=== PATIENT | female | born 1950 | race Caucasian/White ===

== ENCOUNTER 2017-06-01 12:25 | Day surgery (SDC) | payer MEDICARE, BC ==
[~2017-06-01] VITALS: Ht 157.5 cm; Wt 72.6 kg
[~2017-06-01 12:25] MED LIST: ALLER-FLO15.8 ML; AMLO5 PO; ASPI81CH PO; Advair Hfa 230-12 GM; CALCIUM 600 +1 EA11 PO; CARV25 PO; CHLO25B PO; COMBIVENT RESPIM4 GM INH; Multiple Vitam1 EAC1 PO; POTA10T PO
[2017-06-02 04:43] LABS: BASOPHILS ABSOLUTE AUTO 0.05 K/mm3 (0.00-0.23); BASOPHILS PERCENT AUTO 0 % (0-2); EOSINOPHILS ABSOLUTE AUTO 0.05 K/mm3 (0.00-0.68); EOSINOPHILS PERCENT AUTO 0 % (0-6); Hematocrit 37.2 % (33.0-51.0); IMMATURE GRAN ABSOLUTE AUTO 0.05 K/mm3 (0.00-0.10); IMMATURE GRAN PERCENT AUTO 0 % (0-1); LYMPHOCYTES ABSOLUTE AUTO 1.95 K/mm3 (0.84-5.20); LYMPHOCYTES PERCENT AUTO 14 % (21-46); MONOCYTES PERCENT AUTO 8 % (4-13); Mean Corpuscular HGB 29.2 pg (26.0-34.0); Mean Corpuscular HGB Conc 32.3 g/dL (31.5-36.5); Mean Platelet Volume 10.9 fL (9.1-12.4); NEUTROPHILS ABSOLUTE AUTO 11.13 K/mm3 (1.96-9.15); NEUTROPHILS PERCENT AUTO 78 % (41-73); Platelet Count 216 K/mm3 (150-400); RDW Coefficient Variation 13.5 % (11.7-14.2); RDW Standard Deviation 44.8 fL (35.1-46.3); Red Blood Cell Count 4.11 M/mm3 (3.80-5.20); White Blood Cell Count 14.33 K/mm3 (4.00-11.30)
[2017-06-02 04:46] LABS: Mean Corpuscular Volume 91 fL (80-100)
[2017-06-02 05:04] LABS: Anion Gap 6 mmol/L (6-16); Blood Urea Nitrogen 18 mg/dL (8-24); Bun/Creatinine Ratio 23.4 (12.0-20.0); CO2, Blood 31 mmol/L (21-32); Calcium, Blood 8.9 mg/dL (8.5-10.1); Chloride, Blood 104 mmol/L (98-108); Creatinine, Blood 0.77 mg/dL (0.40-1.00); Glomerular Filtration Rate >60 (60-); Glucose, Blood 112 mg/dL (70-99); Magnesium, Blood 1.7 mg/dL (1.6-2.4); Sodium, Blood 141 mmol/L (136-145)
[2017-06-02] MEDS ORDERED: ENOX40I SC (07:52)
[2017-06-02] MEDS ORDERED: ROXICODONE5 MG PO (07:53)
[2017-06-02] MEDS ORDERED: PROM25 PO (07:53)
== END 2017-06-02 11:50 | disposition home or self-care (01) ==
LOC: SURS 12:25 → ORSCMMR 12:25 → PRE IP 12:25 → EDSTATUS 17:30 → SURS 19:25 → ORSCMMR 06-02 11:50
PROVIDERS: Orthopaedic Surgery
PROC: 0SRC0J9 Replacement of Right Knee Joint with Synthetic Substitute, Cemented, Open Approach (ICD-10-PCS; principal; 2017-06-01 17:30)
DX: M17.11 Unilateral primary osteoarthritis, right knee (principal); I10 Essential (primary) hypertension; J44.9 Chronic obstructive pulmonary disease, unspecified; I25.2 Old myocardial infarction; Z87.891 Personal history of nicotine dependence; Z79.899 Other long term (current) drug therapy; Z79.82 Long term (current) use of aspirin
CPT/HCPCS: 36415; 73560-RT; 80048; 83735; 85025; 86850; 86900; 86901; 88300; 97116; 97161; C1713; C1776; G8978; G8979; J0171; J0690; J0735; J1170; J1650; J1885; J2250; J2405; J2795; J3010; J7120

== ENCOUNTER 2019-01-29 18:19 | Inpatient (IN) | payer MEDICARE, BC ==
[~2019-01-29] VITALS: Ht 154.9 cm; Wt 74.7 kg
[~2019-01-29 18:19] MED LIST changes: +ENOX40I SC; +PROM25 PO; +ROXICODONE5 MG PO
[2019-01-29 19:52] LABS: BASOPHILS ABSOLUTE AUTO 0.04 K/mm3 (0.00-0.23); BASOPHILS PERCENT AUTO 0 % (0-2); EOSINOPHILS ABSOLUTE AUTO 0.03 K/mm3 (0.00-0.68); EOSINOPHILS PERCENT AUTO 0 % (0-6); Hematocrit 39.2 % (33.0-51.0); Hemoglobin 12.8 g/dL (11.5-16.0); IMMATURE GRAN ABSOLUTE AUTO 0.04 K/mm3 (0.00-0.10); IMMATURE GRAN PERCENT AUTO 0 % (0-1); LYMPHOCYTES ABSOLUTE AUTO 1.28 K/mm3 (0.84-5.20); LYMPHOCYTES PERCENT AUTO 10 % (21-46); MONOCYTES ABSOLUTE AUTO 1.03 K/mm3 (0.16-1.47); MONOCYTES PERCENT AUTO 8 % (4-13); Mean Corpuscular HGB 29.8 pg (26.0-34.0); Mean Corpuscular HGB Conc 32.7 g/dL (31.5-36.5); Mean Corpuscular Volume 91 fL (80-100); Mean Platelet Volume 10.9 fL (9.1-12.4); NEUTROPHILS ABSOLUTE AUTO 9.94 K/mm3 (1.96-9.15); NEUTROPHILS PERCENT AUTO 81 % (41-73); Platelet Count 272 K/mm3 (150-400); RDW Coefficient Variation 13.2 % (11.7-14.2); RDW Standard Deviation 44.3 fL (35.1-46.3); White Blood Cell Count 12.36 K/mm3 (4.00-11.30)
[2019-01-29] MEDS ORDERED: WIXELA 250-501 EACH (20:00)
[2019-01-29] MEDS ORDERED: FLUO10 PO (20:01)
[2019-01-29 20:12] LABS: Albumin, Blood 3.1 g/dL (3.4-5.0); Albumin/Globulin Ratio 0.8 (0.8-1.8); Bilirubin, Total 0.5 mg/dL (0.1-1.0); Bun/Creatinine Ratio 26.5 (12.0-20.0); Creatinine, Blood 1.02 mg/dL (0.40-1.00); Potassium, Blood 2.9 mmol/L (3.5-5.5); Total Protein, Blood 7.1 g/dL (6.4-8.2)
[2019-01-29] MEDS ORDERED: MONT10T PO (22:42)
--- NOTE | 2019-01-30 06:26 | NUR ---
SHIFT SUMMARY PAIN MANAGED WITH 25 MCG IV FENTANYL/TYLENOL PER EMAR. CIRC TO LEFT LEG REMAINS WNL. PT DENIES N/T OTHER THAN BASELINE, WIGGLES TOES, VOIDING WNL. NPO SINCE MIDNIGHT. RESP UNLABORED. WCTM . CALL LIGHT IN REACH.
[2019-01-30 10:45] LABS: Anion Gap 8 mmol/L (6-16); Blood Urea Nitrogen 21 mg/dL (8-24); Bun/Creatinine Ratio 28.2 (12.0-20.0); CO2, Blood 26 mmol/L (21-32); Calcium, Blood 9.4 mg/dL (8.5-10.1); Chloride, Blood 107 mmol/L (98-108); Creatinine, Blood 0.75 mg/dL (0.40-1.00); Glomerular Filtration Rate >60 (60-); Glucose, Blood 105 mg/dL (70-99); Sodium, Blood 141 mmol/L (136-145)
--- NOTE | 2019-01-30 12:51 | NUR ---
NOZIN NASAL RN ADVICE X3 AMPULES APPLIED TO NARES BILAT. KNEE HIGH DOMINICK HOSE WITH CALF PAS PLACED TO RLE. KNEE HIGH DOMINICK HOSE WITH CALF PAS TO BE APPLIED TO LLE IN THE OR, AFTER PATIENT ASLEEP PER DR BAKER.
--- NOTE | 2019-01-30 13:01 | NUR ---
"DAY SURGERY RN | TO OR BOTH DOCTORS AND INTERLOCKING MACHINE OPERATOR HAVE SEEN. TO OR."
--- NOTE | 2019-01-30 18:34 | NUR ---
SHIFT SUMMARY PT A&OX4, VSS, S/P L HIP PINNING, AQUACEL CDI. DENIES PAIN AT THIS TIME. DENIES N&V, MYKE PO. VOIDING WELL. AMBULATING W/SBA/FWW/GB; UP TO CHAIR FOR DINNER. FAMILY IN ROOM. WILL REPORT TO ONCCHANDNI ONEILL RN.
[2019-01-31 04:48] LABS: BASOPHILS ABSOLUTE AUTO 0.02 K/mm3 (0.00-0.23); BASOPHILS PERCENT AUTO 0 % (0-2); EOSINOPHILS PERCENT AUTO 0 % (0-6); Hematocrit 35.7 % (33.0-51.0); Hemoglobin 11.5 g/dL (11.5-16.0); IMMATURE GRAN ABSOLUTE AUTO 0.05 K/mm3 (0.00-0.10); IMMATURE GRAN PERCENT AUTO 0 % (0-1); LYMPHOCYTES ABSOLUTE AUTO 0.97 K/mm3 (0.84-5.20); LYMPHOCYTES PERCENT AUTO 8 % (21-46); MONOCYTES ABSOLUTE AUTO 0.74 K/mm3 (0.16-1.47); MONOCYTES PERCENT AUTO 6 % (4-13); Mean Corpuscular HGB 29.9 pg (26.0-34.0); Mean Corpuscular HGB Conc 32.2 g/dL (31.5-36.5); Mean Corpuscular Volume 93 fL (80-100); Mean Platelet Volume 10.9 fL (9.1-12.4); NEUTROPHILS ABSOLUTE AUTO 9.81 K/mm3 (1.96-9.15); NEUTROPHILS PERCENT AUTO 85 % (41-73); Platelet Count 261 K/mm3 (150-400); RDW Coefficient Variation 13.2 % (11.7-14.2); RDW Standard Deviation 45.6 fL (35.1-46.3); Red Blood Cell Count 3.84 M/mm3 (3.80-5.20); White Blood Cell Count 11.59 K/mm3 (4.00-11.30)
--- NOTE | 2019-01-31 04:54 | NUR ---
UP AND DRESSED IN OWN CLOTHES.
[2019-01-31 05:03] LABS: Anion Gap 7 mmol/L (6-16); Blood Urea Nitrogen 25 mg/dL (8-24); Bun/Creatinine Ratio 34.7 (12.0-20.0); CO2, Blood 28 mmol/L (21-32); Calcium, Blood 9.2 mg/dL (8.5-10.1); Chloride, Blood 108 mmol/L (98-108); Creatinine, Blood 0.72 mg/dL (0.40-1.00); Glomerular Filtration Rate >60 (60-); Glucose, Blood 132 mg/dL (70-99); Potassium, Blood 3.7 mmol/L (3.5-5.5); Sodium, Blood 143 mmol/L (136-145)
--- NOTE | 2019-01-31 05:29 | NUR ---
SHIFT SUMMARY PT POD#1 LEFT HIP SURGERY. AAOX4. DISCOMFORT AT TOLERABLE LEVEL T/O NIGHT. NO NAUSEA/EMESIS. MEPILEX TO LEFT HIP C/D/I. PT UP TO RESTROOM, SBA WITH FWW, TOLERATES WELL. POTASSIUM DRAW THIS AM WNL, AWAITING H+H RESULTS. PT RESTED WELL T/O NIGHT. NADN. PT RESTING AT THIS TIME WITH CALL LIGHT WITHIN REACH.
[2019-01-31] MEDS ORDERED: TRAM50 PO (09:17)
--- NOTE | 2019-01-31 11:48 | NUR ---
DISCHARGE PT DISCHARGED HOME FROM UNIT AT APROX 1149. PT GIVEN WRITTEN AND VERBAL DISCHARGE INSTRUCTIONS AND VERBALIZED UNDERSTANDING OF THESE INSTRUCTIONS. IV REMOVED, PT TOLERATED WELL. WHEELCHAIR TO CAR.
--- NOTE | 2019-02-01 10:47 | NUR ---
02/01/19 1047 Destiny Nazario VERIFICATIONS: EDIT CHART.
== END 2019-01-31 11:51 | disposition home or self-care (01) | DRG 482 ==
LOC: ER 18:19 → SURS 19:34
PROVIDERS: Hospitalist; Orthopaedic Surgery; Physician Assistant; ADMIT Family Medicine
PROC: 0QH734Z Insertion of Internal Fixation Device into Left Upper Femur, Percutaneous Approach (ICD-10-PCS; principal; 2019-01-30 12:30)
DX: S72.009A Fracture of unspecified part of neck of unspecified femur, initial encounter for closed fracture (principal); I10 Essential (primary) hypertension; Z90.13 Acquired absence of bilateral breasts and nipples; Z96.651 Presence of right artificial knee joint; F17.290 Nicotine dependence, other tobacco product, uncomplicated; E87.6 Hypokalemia; D72.829 Elevated white blood cell count, unspecified; W18.30XA Fall on same level, unspecified, initial encounter; Y93.9 Activity, unspecified; Z79.82 Long term (current) use of aspirin; K58.9 Irritable bowel syndrome, unspecified
CPT/HCPCS: 36415; 71045; 73502; 80048; 80053; 85025; 94640; 94760; 96374; 97110; 97116; 97162; 97165; 97535; 99285-25; A9270; C1713; C1769; J0690; J1100; J1170; J1885; J2250; J2405; J2704; J3010; J3480; J7040; J7120

== ENCOUNTER 2020-02-13 06:17 | Day surgery (SDC) | payer MEDICARE, BC ==
[~2020-02-13] VITALS: Ht 154.9 cm; Wt 66.2 kg
[~2020-02-13 06:17] MED LIST changes: +Aspir 8181 MG PO; +CALCIUM 600-VI1 EAC2 PO; +COMBIVENT RESPIM4 G1 INH; +FLUO10 PO; +FLUT1DIS5 INH; +MONT10T PO; +MULTIPLE VITAM1 EACH PO; +TRAM50 PO; +WIXELA 100-501 EAC1 INH; +WIXELA 250-501 EACH
[2020-02-13] MEDS ORDERED: IBUP800 PO (06:58)
== END 2020-02-13 09:31 | disposition home or self-care (01) ==
LOC: ORSCSDS 06:17
PROVIDERS: Orthopaedic Surgery
PROC: 0SPB04Z Removal of Internal Fixation Device from Left Hip Joint, Open Approach (ICD-10-PCS; principal; 2020-02-13 07:30)
DX: T84.9XXA Unspecified complication of internal orthopedic prosthetic device, implant and graft, initial encounter (principal); I10 Essential (primary) hypertension; I25.2 Old myocardial infarction; J44.9 Chronic obstructive pulmonary disease, unspecified; Z87.891 Personal history of nicotine dependence; Z79.899 Other long term (current) drug therapy; Z79.82 Long term (current) use of aspirin
CPT/HCPCS: J0171; J0690; J1100; J1885; J2250; J2405; J2704; J3010; J7120

== ENCOUNTER 2020-04-30 11:13 | Day surgery (SDC) | payer MEDICARE, BC ==
[~2020-04-30] VITALS: Ht 152.4 cm; Wt 65.0 kg
[~2020-04-30 11:13] MED LIST changes: +FLUT1DIS2; +IBUP800 PO
--- NOTE | 2020-04-30 12:03 | NUR ---
Ambulatory in Day Surgery WITH WALKER. History, Chart, Medications and Allergies reviewed before start of procedure.Lungs clear T/O UPPER, DIMINSHED IN BASE ON R to Auscultation. Patient confirms NPO status and agrees with scheduled surgery. Pre-Op teaching done. Pt verbalizes understanding.
--- NOTE | 2020-04-30 18:05 | NUR ---
SHIFT SUMMARY PT ARRIVED @ 1530 W/ STRONG SPINAL. HAS SINCE WORE OFF, AMBULATED, VOIDED, TOELRATING DIET, & PAIN MANAGED.
[2020-04-30] MEDS ORDERED: MONT10T PO (20:05)
--- NOTE | 2020-04-30 22:47 | NUR ---
ASSUMED CARE AT 1900. PT A/O X4, TOLERATING PO INTAKE, VOIDING, AND AMBULATING. RESTING IN BED WITH CALL LIGHT IN REACH.
--- NOTE | 2020-05-01 04:06 | NUR ---
SHIFT SUMMARY PT IS A/O X4. SBA WITH FWW AND GAIT BELT TO AMBULATE. PT IS AMBULATING, TOLERATING PO INTAKE, AND VOIDING. PAIN MANAGED WTIH OXY X2 AND TYLENOL & TORADOL PER SCHEDULE. POLAR PACK IN PLACE TO L KNEE. RIGOBERTO WRAP CDI OVERNIGHT. PT IS RESTING IN BED AT THIS TIME, CALL LIGHT IN REACH.
[2020-05-01 06:17] LABS: BASOPHILS ABSOLUTE AUTO 0.03 K/mm3 (0.00-0.23); BASOPHILS PERCENT AUTO 0 % (0-2); EOSINOPHILS PERCENT AUTO 0 % (0-6); Hemoglobin 11.9 g/dL (11.5-16.0); IMMATURE GRAN ABSOLUTE AUTO 0.08 K/mm3 (0.00-0.10); IMMATURE GRAN PERCENT AUTO 1 % (0-1); LYMPHOCYTES ABSOLUTE AUTO 1.27 K/mm3 (0.84-5.20); LYMPHOCYTES PERCENT AUTO 7 % (21-46); MONOCYTES ABSOLUTE AUTO 1.02 K/mm3 (0.16-1.47); MONOCYTES PERCENT AUTO 6 % (4-13); Mean Corpuscular HGB Conc 32.2 g/dL (31.5-36.5); Mean Corpuscular Volume 90 fL (80-100); Mean Platelet Volume 11.1 fL (9.1-12.4); NEUTROPHILS ABSOLUTE AUTO 15.22 K/mm3 (1.96-9.15); NEUTROPHILS PERCENT AUTO 86 % (41-73); Platelet Count 265 K/mm3 (150-400); RDW Coefficient Variation 13.2 % (11.7-14.2); RDW Standard Deviation 43.5 fL (35.1-46.3); White Blood Cell Count 17.62 K/mm3 (4.00-11.30)
[2020-05-01 06:36] LABS: Anion Gap 6 mmol/L (6-16); Blood Urea Nitrogen 21 mg/dL (8-24); Bun/Creatinine Ratio 23.8 (12.0-20.0); CO2, Blood 30 mmol/L (21-32); Calcium, Blood 9.3 mg/dL (8.5-10.1); Chloride, Blood 105 mmol/L (98-108); Creatinine, Blood 0.88 mg/dL (0.40-1.00); Glomerular Filtration Rate >60 (60-); Glucose, Blood 114 mg/dL (70-99); Magnesium, Blood 1.5 mg/dL (1.6-2.4); Potassium, Blood 3.5 mmol/L (3.5-5.5); Sodium, Blood 141 mmol/L (136-145)
--- NOTE | 2020-05-01 10:51 | NUR ---
SHIFT SUMMARY PT A&OX4, VSS, LEFT FLOOR VIA WC WITH AVIATION MAINTENANCE TECHNICIAN TO GO HOME WITH SISTER, WITH ALL PERSONAL POSSESSIONS INCLUDING DC PACKET; SCRIPTS AT HOME. DC INSTRUCTIONS PROVIDED, PT REP UNDERSTANDING THOSE INSTRUCTIONS INCLUDING HOW TO SQ LOVENOX/ASA SCHEDULE, FU WITH SURGEON, DRESSING CHANGE SCHEDULE (WHEN/HOW), PAIN MANAGEMENT. IV DC'D.
[2020-06-25] MEDS ORDERED: MONT5TCH PO (09:10)
[2020-06-26] MEDS ORDERED: ENOX40I SC (07:58)
[2020-06-26] MEDS ORDERED: Aspirin EC81 MG PO (07:58)
[2020-06-26] MEDS ORDERED: Percocet 5-3251 EACH PO (08:00)
[2020-06-26] MEDS ORDERED: SULTRIDS PO (08:01)
[2020-06-26] MEDS ORDERED: PROM25 PO (09:53)
== END 2020-05-01 10:29 | disposition home or self-care (01) ==
LOC: ORSCMMR 11:13 → ORD 14:00 → SURS 15:19 → ORSCMMR 15:19 → SURS 05-01 10:29
PROVIDERS: Orthopaedic Surgery
PROC: 0SRD0J9 Replacement of Left Knee Joint with Synthetic Substitute, Cemented, Open Approach (ICD-10-PCS; principal; 2020-04-30 14:00)
PROC: 8E0YXBZ Computer Assisted Procedure of Lower Extremity (ICD-10-PCS; principal; 2020-04-30 14:00)
DX: M17.12 Unilateral primary osteoarthritis, left knee (principal); I10 Essential (primary) hypertension; Z79.899 Other long term (current) drug therapy; Z79.82 Long term (current) use of aspirin; Z87.891 Personal history of nicotine dependence
CPT/HCPCS: 36415; 73560-LT; 80048; 83735; 85025; 88300; 94640; 94760; 97110; 97116; 97162; A9270; C1713; C1776; J0171; J0690; J0735; J1100; J1170; J1885; J2250; J2405; J2704; J2795; J3010; J3370; J3475; J7120

== ENCOUNTER 2024-04-03 21:20 | Emergency (ER) | payer MEDICARE, BC ==
[~2024-04-03] VITALS: Ht 154.9 cm; Wt 72.6 kg
[~2024-04-03 21:20] MED LIST changes: +Aspirin EC81 MG PO; +MONT5TCH PO; +Percocet 5-3251 EACH PO; +SULTRIDS PO
[2024-04-03 22:04] LABS: BASOPHILS ABSOLUTE AUTO 0.07 K/mm3 (0.00-0.23); BASOPHILS PERCENT AUTO 1 % (0-2); EOSINOPHILS ABSOLUTE AUTO 0.03 K/mm3 (0.00-0.68); EOSINOPHILS PERCENT AUTO 0 % (0-6); IMMATURE GRAN PERCENT AUTO 1 % (0-1); LYMPHOCYTES ABSOLUTE AUTO 2.23 K/mm3 (0.84-5.20); LYMPHOCYTES PERCENT AUTO 16 % (21-46); MONOCYTES ABSOLUTE AUTO 1.05 K/mm3 (0.16-1.47); MONOCYTES PERCENT AUTO 7 % (4-13); Mean Corpuscular HGB 28.4 pg (26.0-34.0); Mean Corpuscular HGB Conc 31.7 g/dL (31.5-36.5); Mean Corpuscular Volume 90 fL (80-100); Mean Platelet Volume 11.5 fL (9.1-12.4); NEUTROPHILS ABSOLUTE AUTO 10.87 K/mm3 (1.96-9.15); NEUTROPHILS PERCENT AUTO 76 % (41-73); Platelet Count 307 K/mm3 (150-400); RDW Standard Deviation 45.2 fL (35.1-46.3); Red Blood Cell Count 4.57 M/mm3 (3.80-5.20); White Blood Cell Count 14.35 K/mm3 (4.00-11.30)
[2024-04-03 22:29] LABS: Albumin, Blood 3.3 g/dL (3.4-5.0); Albumin/Globulin Ratio 0.9 (0.8-1.8); Bilirubin, Total 0.4 mg/dL (0.1-1.0); Bun/Creatinine Ratio 22.2 (12.0-20.0); Creatinine, Blood 1.17 mg/dL (0.40-1.00); Globulin, Blood 3.7 g/dL (2.2-4.0); Potassium, Blood 4.1 mmol/L (3.5-5.5)
[2024-04-03 23:30] VITALS: BP 165/91
== END 2024-04-04 00:59 | disposition home or self-care (01) ==
LOC: ER 21:20
PROVIDERS: Physician Assistant
DX: R07.89 Other chest pain (principal); I10 Essential (primary) hypertension; Z91.048 Other nonmedicinal substance allergy status; Z79.82 Long term (current) use of aspirin; Z79.899 Other long term (current) drug therapy; Z87.891 Personal history of nicotine dependence
CPT/HCPCS: 71275; 80053; 83690; 84484; 85025; 93005; 93010; 99285-25; Q9967

== ENCOUNTER 2024-06-20 02:08 | Day surgery (SDC) | payer MEDICARE, BC ==
[~2024-06-20 02:08] MED LIST changes: -MONT5TCH PO
[2024-06-20] MEDS ORDERED: Lidocaine HCl 4% Cream 5 GM ONE (14:04)
[2024-07-02] MEDS ORDERED: IBU800 MG PO (09:47)
[2024-07-02] MEDS ORDERED: MAG-OXIDE MAGN200 MG PO (09:48)
[2024-07-02] MEDS ORDERED: METO25ER PO (09:49)
== END 2024-06-20 23:00 ==
LOC: WOUND 02:08
DX: I87.312 Chronic venous hypertension (idiopathic) with ulcer of left lower extremity (principal); L97.822 Non-pressure chronic ulcer of other part of left lower leg with fat layer exposed; I87.2 Venous insufficiency (chronic) (peripheral); I73.9 Peripheral vascular disease, unspecified; I10 Essential (primary) hypertension; J45.909 Unspecified asthma, uncomplicated; Z87.891 Personal history of nicotine dependence
CPT/HCPCS: A6213; A9270; G0463

== ENCOUNTER 2024-06-27 05:31 | Day surgery (SDC) | payer MEDICARE, BC ==
[~2024-06-27 05:31] MED LIST changes: +MONT5TCH PO
[2024-06-27] MEDS ORDERED: Lidocaine HCl 4% Cream 5 GM ONE (13:07)
== END 2024-06-27 23:00 | disposition home or self-care (01) ==
LOC: WOUND 05:31
DX: I87.312 Chronic venous hypertension (idiopathic) with ulcer of left lower extremity (principal); L97.822 Non-pressure chronic ulcer of other part of left lower leg with fat layer exposed; I87.2 Venous insufficiency (chronic) (peripheral); I73.9 Peripheral vascular disease, unspecified; I10 Essential (primary) hypertension
CPT/HCPCS: A6196; A6213; A9270

== ENCOUNTER 2024-07-03 03:15 | Day surgery (SDC) | payer MEDICARE, BC ==
[~2024-07-03 03:15] MED LIST changes: +IBU800 MG PO; +MAG-OXIDE MAGN200 MG PO; +METO25ER PO; -MONT5TCH PO
[2024-07-03] MEDS ORDERED: Lidocaine HCl 4% Cream 5 GM ONE (13:39)
== END 2024-07-03 23:38 | disposition home or self-care (01) ==
LOC: WOUND 03:15
DX: I87.312 Chronic venous hypertension (idiopathic) with ulcer of left lower extremity (principal); L97.822 Non-pressure chronic ulcer of other part of left lower leg with fat layer exposed; I87.2 Venous insufficiency (chronic) (peripheral); I73.9 Peripheral vascular disease, unspecified
CPT/HCPCS: A6196; A6213; A9270

== ENCOUNTER 2024-07-11 03:19 | Day surgery (SDC) | payer MEDICARE, BC ==
[2024-07-11] MEDS ORDERED: Lidocaine HCl 4% Cream 5 GM ONE (14:03)
== END 2024-07-11 23:00 | disposition home or self-care (01) ==
LOC: WOUND 03:19
DX: I87.312 Chronic venous hypertension (idiopathic) with ulcer of left lower extremity (principal); L97.822 Non-pressure chronic ulcer of other part of left lower leg with fat layer exposed; I87.2 Venous insufficiency (chronic) (peripheral); I73.9 Peripheral vascular disease, unspecified
CPT/HCPCS: A6213; A9270; G0463

== ENCOUNTER 2024-07-16 14:34 | Day surgery (SDC) | payer MEDICARE, BC ==
[2024-07-16] MEDS ORDERED: Lidocaine HCl 4% Cream 5 GM ONE (15:56)
[2024-07-16] MEDS ORDERED: Triamcinolone Acet 0.1% Cream 15 gm ONE (16:08)
[2024-07-17] MEDS ORDERED: ATENOLOL25 MG PO (11:38)
== END 2024-07-16 23:30 | disposition home or self-care (01) ==
LOC: WOUND 14:34
DX: I87.312 Chronic venous hypertension (idiopathic) with ulcer of left lower extremity (principal); L97.822 Non-pressure chronic ulcer of other part of left lower leg with fat layer exposed; I87.2 Venous insufficiency (chronic) (peripheral); I73.9 Peripheral vascular disease, unspecified; I10 Essential (primary) hypertension
CPT/HCPCS: A9270; G0463

== ENCOUNTER 2024-08-06 03:35 | Day surgery (SDC) | payer MEDICARE, BC ==
[~2024-08-06 03:35] MED LIST changes: +ATENOLOL25 MG PO
[2024-08-06] MEDS ORDERED: Lidocaine HCl 4% Cream 5 GM ONE (15:01)
== END 2024-08-06 23:56 | disposition home or self-care (01) ==
LOC: WOUND 03:35
DX: I87.312 Chronic venous hypertension (idiopathic) with ulcer of left lower extremity (principal); L97.822 Non-pressure chronic ulcer of other part of left lower leg with fat layer exposed; I87.2 Venous insufficiency (chronic) (peripheral); I73.9 Peripheral vascular disease, unspecified; I10 Essential (primary) hypertension
CPT/HCPCS: A9270; G0463

== ENCOUNTER 2024-08-27 08:00 | Day surgery (SDC) | payer MEDICARE, BC ==
[~2024-08-27 08:00] MED LIST changes: +HYDR1TAB94 PO
[2024-08-27] MEDS ORDERED: Triamcinolone Acet 0.1% Cream 15 gm ONE (15:33)
== END 2024-08-27 23:00 | disposition home or self-care (01) ==
LOC: WOUND 08:00
DX: I87.312 Chronic venous hypertension (idiopathic) with ulcer of left lower extremity (principal); L97.822 Non-pressure chronic ulcer of other part of left lower leg with fat layer exposed; I87.2 Venous insufficiency (chronic) (peripheral); I73.9 Peripheral vascular disease, unspecified; I10 Essential (primary) hypertension; Z87.891 Personal history of nicotine dependence
CPT/HCPCS: A9270; G0463

== ENCOUNTER 2024-09-03 05:07 | Day surgery (SDC) | payer MEDICARE, BC ==
[2024-09-03] MEDS ORDERED: Lidocaine HCl 4% Cream 5 GM ONE (15:50)
== END 2024-09-03 23:00 | disposition home or self-care (01) ==
LOC: WOUND 05:07
DX: I87.313 Chronic venous hypertension (idiopathic) with ulcer of bilateral lower extremity (principal); L97.822 Non-pressure chronic ulcer of other part of left lower leg with fat layer exposed; L97.812 Non-pressure chronic ulcer of other part of right lower leg with fat layer exposed; I87.2 Venous insufficiency (chronic) (peripheral); I73.9 Peripheral vascular disease, unspecified
CPT/HCPCS: A9270; G0463

== ENCOUNTER 2024-09-24 00:47 | Day surgery (SDC) | payer MEDICARE, BC ==
[2024-09-24] MEDS ORDERED: Lidocaine HCl 4% Cream 5 GM ONE (15:21)
== END 2024-09-24 23:00 | disposition home or self-care (01) ==
LOC: WOUND 00:47
DX: I87.313 Chronic venous hypertension (idiopathic) with ulcer of bilateral lower extremity (principal); L97.822 Non-pressure chronic ulcer of other part of left lower leg with fat layer exposed; L97.812 Non-pressure chronic ulcer of other part of right lower leg with fat layer exposed; I87.2 Venous insufficiency (chronic) (peripheral); I73.9 Peripheral vascular disease, unspecified
CPT/HCPCS: A9270

== ENCOUNTER 2024-10-01 01:07 | Day surgery (SDC) | payer MEDICARE, BC ==
[2024-10-01] MEDS ORDERED: Lidocaine HCl 4% Cream 5 GM ONE (14:55)
== END 2024-10-01 23:00 | disposition home or self-care (01) ==
LOC: WOUND 01:07
DX: I87.312 Chronic venous hypertension (idiopathic) with ulcer of left lower extremity (principal); L97.822 Non-pressure chronic ulcer of other part of left lower leg with fat layer exposed; L97.812 Non-pressure chronic ulcer of other part of right lower leg with fat layer exposed; I87.2 Venous insufficiency (chronic) (peripheral); I73.9 Peripheral vascular disease, unspecified; I10 Essential (primary) hypertension
CPT/HCPCS: A9270

== ENCOUNTER 2024-10-08 00:50 | Day surgery (SDC) | payer MEDICARE, BC | END 2024-10-08 23:00 | disposition home or self-care (01) | LOC: WOUND 00:50 | DX: I87.313 Chronic venous hypertension (idiopathic) with ulcer of bilateral lower extremity (principal); L97.822 Non-pressure chronic ulcer of other part of left lower leg with fat layer exposed; L97.812 Non-pressure chronic ulcer of other part of right lower leg with fat layer exposed; I87.2 Venous insufficiency (chronic) (peripheral); I73.9 Peripheral vascular disease, unspecified; I10 Essential (primary) hypertension | CPT/HCPCS: G0463 ==

== ENCOUNTER 2024-10-24 04:30 | Day surgery (SDC) | payer MEDICARE, BC ==
[2024-10-24] MEDS ORDERED: Lidocaine HCl 4% Cream 5 GM ONE (15:41)
== END 2024-10-24 23:00 | disposition home or self-care (01) ==
LOC: WOUND 04:30
DX: I87.313 Chronic venous hypertension (idiopathic) with ulcer of bilateral lower extremity (principal); L97.822 Non-pressure chronic ulcer of other part of left lower leg with fat layer exposed; L97.222 Non-pressure chronic ulcer of left calf with fat layer exposed; L97.812 Non-pressure chronic ulcer of other part of right lower leg with fat layer exposed; L97.212 Non-pressure chronic ulcer of right calf with fat layer exposed; I10 Essential (primary) hypertension; I87.2 Venous insufficiency (chronic) (peripheral); I73.9 Peripheral vascular disease, unspecified
CPT/HCPCS: A9270

== ENCOUNTER 2024-11-06 04:55 | Day surgery (SDC) | payer MEDICARE, BC ==
[2024-11-06] MEDS ORDERED: Lidocaine HCl 4% Cream 5 GM ONE (15:41)
== END 2024-11-06 23:01 | disposition home or self-care (01) ==
LOC: WOUND 04:55
DX: L97.812 Non-pressure chronic ulcer of other part of right lower leg with fat layer exposed (principal); S81.811A Laceration without foreign body, right lower leg, initial encounter; S81.812A Laceration without foreign body, left lower leg, initial encounter; X58.XXXA Exposure to other specified factors, initial encounter; I87.312 Chronic venous hypertension (idiopathic) with ulcer of left lower extremity; L97.822 Non-pressure chronic ulcer of other part of left lower leg with fat layer exposed; I10 Essential (primary) hypertension; I87.2 Venous insufficiency (chronic) (peripheral); I73.9 Peripheral vascular disease, unspecified
CPT/HCPCS: A9270

== ENCOUNTER 2024-11-13 02:12 | Day surgery (SDC) | payer MEDICARE, BC ==
[2024-11-13] MEDS ORDERED: Lidocaine HCl 4% Cream 5 GM ONE (15:24)
== END 2024-11-13 23:00 | disposition home or self-care (01) ==
LOC: WOUND 02:12
DX: I87.311 Chronic venous hypertension (idiopathic) with ulcer of right lower extremity (principal); L97.812 Non-pressure chronic ulcer of other part of right lower leg with fat layer exposed; L97.222 Non-pressure chronic ulcer of left calf with fat layer exposed; L97.212 Non-pressure chronic ulcer of right calf with fat layer exposed; I87.2 Venous insufficiency (chronic) (peripheral); I73.9 Peripheral vascular disease, unspecified; I10 Essential (primary) hypertension
CPT/HCPCS: A9270

== ENCOUNTER 2024-11-19 01:26 | Day surgery (SDC) | payer MEDICARE, BC ==
[2024-11-19] MEDS ORDERED: Lidocaine HCl 4% Cream 5 GM ONE (15:39)
== END 2024-11-19 22:00 | disposition home or self-care (01) ==
LOC: WOUND 01:26
DX: I87.312 Chronic venous hypertension (idiopathic) with ulcer of left lower extremity (principal); L97.222 Non-pressure chronic ulcer of left calf with fat layer exposed; L97.212 Non-pressure chronic ulcer of right calf with fat layer exposed; L97.811 Non-pressure chronic ulcer of other part of right lower leg limited to breakdown of skin; I87.2 Venous insufficiency (chronic) (peripheral); I73.9 Peripheral vascular disease, unspecified; I10 Essential (primary) hypertension; N18.30 Chronic kidney disease, stage 3 unspecified; D63.1 Anemia in chronic kidney disease; E55.9 Vitamin D deficiency, unspecified; E78.00 Pure hypercholesterolemia, unspecified; R76.9 Abnormal immunological finding in serum, unspecified; R94.5 Abnormal results of liver function studies; R94.6 Abnormal results of thyroid function studies; D51.8 Other vitamin B12 deficiency anemias; D52.8 Other folate deficiency anemias; D50.8 Other iron deficiency anemias
CPT/HCPCS: 81050; 82043; 82570; 84156; A9270

== ENCOUNTER → 2024-11-19 | Outpatient (CLI) | payer MEDICARE, BC ==
[2024-11-19 20:23] LABS: Microalbumin, Urine Quant. 127.0 mg/L (0.000-20.000); Protein, Urine Quantitative 39.3 mg/dL (0.0-11.9)
== END ==
LOC: LAB 07:30 → LAB SHORT 07:30
PROVIDERS: Internal Medicine Nephrology
DX: N18.30 Chronic kidney disease, stage 3 unspecified (principal); D63.1 Anemia in chronic kidney disease; E55.9 Vitamin D deficiency, unspecified; E78.00 Pure hypercholesterolemia, unspecified; R76.9 Abnormal immunological finding in serum, unspecified; R94.5 Abnormal results of liver function studies; R94.6 Abnormal results of thyroid function studies; D51.8 Other vitamin B12 deficiency anemias; D52.8 Other folate deficiency anemias; D50.8 Other iron deficiency anemias
CPT/HCPCS: 81050; 82043; 82570; 84156

== ENCOUNTER 2024-12-04 01:01 | Day surgery (SDC) | payer MEDICARE, BC ==
[2024-12-04] MEDS ORDERED: Lidocaine HCl 4% Cream 5 GM ONE (15:15)
== END 2024-12-04 23:00 | disposition home or self-care (01) ==
LOC: WOUND 01:01
DX: I87.313 Chronic venous hypertension (idiopathic) with ulcer of bilateral lower extremity (principal); L97.822 Non-pressure chronic ulcer of other part of left lower leg with fat layer exposed; L97.812 Non-pressure chronic ulcer of other part of right lower leg with fat layer exposed; I87.2 Venous insufficiency (chronic) (peripheral); I73.9 Peripheral vascular disease, unspecified
CPT/HCPCS: A9270

== ENCOUNTER 2025-01-07 00:33 | Day surgery (SDC) | payer MEDICARE, BC ==
[2025-01-07] MEDS ORDERED: Lidocaine HCl 4% Cream 5 GM ONE (15:05)
== END 2025-01-07 23:15 | disposition home or self-care (01) ==
LOC: WOUND 00:33
DX: I87.312 Chronic venous hypertension (idiopathic) with ulcer of left lower extremity (principal); L97.822 Non-pressure chronic ulcer of other part of left lower leg with fat layer exposed; I10 Essential (primary) hypertension; I73.9 Peripheral vascular disease, unspecified
CPT/HCPCS: A9270; G0463

== ENCOUNTER 2025-01-15 01:44 | Day surgery (SDC) | payer MEDICARE, BC ==
[2025-01-15] MEDS ORDERED: Lidocaine HCl 4% Cream 5 GM ONE (15:31)
== END 2025-01-15 23:12 | disposition home or self-care (01) ==
LOC: WOUND 01:44
DX: I87.312 Chronic venous hypertension (idiopathic) with ulcer of left lower extremity (principal); L97.822 Non-pressure chronic ulcer of other part of left lower leg with fat layer exposed; I87.2 Venous insufficiency (chronic) (peripheral); I73.9 Peripheral vascular disease, unspecified; I10 Essential (primary) hypertension
CPT/HCPCS: A9270; G0463

== ENCOUNTER 2025-01-29 08:02 | Day surgery (SDC) | payer MEDICARE, BC | END 2025-01-29 23:33 | disposition home or self-care (01) | LOC: WOUND 08:02 | DX: L97.829 Non-pressure chronic ulcer of other part of left lower leg with unspecified severity (principal); I87.2 Venous insufficiency (chronic) (peripheral); I73.9 Peripheral vascular disease, unspecified | CPT/HCPCS: G0463 ==